=== PATIENT | male | born 1995 | race Caucasian/White ===

== ENCOUNTER 2020-06-10 08:17 | Emergency (ER) | payer OTHER, BC, SELFPAY ==
[2020-06-10 08:21] VITALS: BP 174/100; PULSE 90; RESP 18; TEMP 36.5; O2SAT 98; BMI 32.3
[2020-06-10 08:30] VITALS: PULSE 79
--- NOTE | 2020-06-10 08:30 | XRR_ITS ---
PROCEDURE INFORMATION: Exam: XR Right Finger(s) Exam date and time: 06/10/2020 8:32 AM Age: 25 years old Clinical indication: Injury or trauma; Other: Not specified; Blunt trauma (contusions or hematomas); Right; Middle finger; Additional info: Right middle finger injury TECHNIQUE: Imaging protocol: XR Right fingers. Views: Minimum 2 views. COMPARISON: No relevant prior studies available. FINDINGS: Bones/joints: Normal. Soft tissues: There is soft tissue deformity of the middle finger consistent with soft tissue laceration. The bandage surrounds the finger. Definite foreign bodies are not seen in the soft tissues. XR/XR finger RT min 2V 82201 IMPRESSION: Soft tissue injury of the middle finger. No bony abnormalities are seen.
[2020-06-10] MEDS: tetanus-dipt-pertussis 0.5 mL SDV IM (08:45)
[2020-06-10] MEDS: lidocaine 1% INJ 20 mL INJECTION (08:49)
--- NOTE | 2020-06-10 09:23 | ED_ITS ---
HPI - Extremity Problem General: Chief complaint: Extremity Injury, Upper Stated complaint: Finger injury on right hand History of Present Illness: HPI Narrative: Patient is a 25-year-old male who presents to the emergency room due to crush injury to right middle finger. Patient states that he was utilizing a metal bending machine when his right middle finger went into the machine. Patient presents now with glove on hand with open laceration noted through glove. Patient still has sensation to distal tip. Patient is able to bend his finger at the MCP joint. Patient tetanus is not up-to-date. Review of Systems General: Reports: 10 or more systems reviewed and unremarkable except in HPI and below Musc: Reports: extremity pain (3rd finger off right hand) and extremity swelling (3rd finger of right hand) Skin/Breast: Reports: other (laceration to 3rd finger of right hand.) Physical Exam Const: COMMON NORMALS: no acute distress, average body habitus, patient oriented x3, no limitations, healthy appearing, alert and well nourished GENERAL APPEARANCE: cooperative, comfortable, well kempt and well developed ORIENTATION/CONSCIOUSNESS: Yes awake, Yes oriented to person, Yes oriented to place and Yes oriented to time HENMT: COMMON NORMALS: normocephalic, atraumatic, hearing grossly normal bilaterally, external ears normal and Normal external nose present HEAD & SCALP: normal to inspection, normocephalic and atraumatic FACE & SINUS: normal facial exam NOSE: Normal external nose present GENERAL EAR: hearing grossly impaired EXTERNAL EAR: Yes external ears normal MOUTH: Normal oral and palatal mucosa present Eye: COMMON NORMALS: Equal, round and reactive pupils present and EOMs intact bilaterally GENERAL EYE: appearance normal, both eyes and all related structures PUPIL: Yes Equal, round and reactive pupils present Neck/C-Spine: COMMON NORMALS: full ROM and supple GENERAL: Yes normal visual inspection Chest: COMMONS NORMALS: normal inspection of the chest Resp: COMMON NORMALS: normal respiratory effort and No use of accessory muscles EFFORT & INSPECTION: Yes able to speak in complete sentences Cardio: COMMON NORMALS: regular rate, regular rhythm and Peripheral pulses 2+ throughout RATE: regular rate RHYTHM: regular rhythm PERIPHERAL PULSES: Peripheral pulses 2+ throughout GI: COMMON NORMALS: Normal to inspection, nondistended, normoactive bowel sounds present INSPECTION: Yes normal to inspection Back/Pelvis: THORACIC SPINE/UPPER BACK: Yes normal to inspection and Yes thoracic ROM normal Extremity: RIGHT UPPER EXTREMITY: Yes hand & digits (patient has partial avulsion of distal 3rd finger soft tissue with swelling) Right hand and digits: Yes inspection (tendons appear to be intact.), Yes ROM exam (ROM intact at MCP and DIP joint. Limited due to swelling at PIP.) and Yes neurovascular exam (capillary refill is less than 3 seconds and sensation is intact distal tip) Neuro: COMMON NORMALS: patient oriented x3 SENSORIUM/ORIENTATION: Yes alert, Yes oriented to person, Yes oriented to place and Yes oriented to time CRANIAL NERVES: Yes CN normal except as noted Psych: COMMON NORMALS: mental status grossly normal, cooperative and normal affect APPEARANCE: Yes grossly normal and Yes well kempt ATTITUDE: Yes calm Skin: TRAUMA: laceration (distal 3rd finger no nailbed involvement.) irregular, involves subcutaneous tissue, motor nerve function intact and sensation intact; no pulsatile bleeding Procedures Laceration Laceration 1: Site: upper extremity Side (If applicable): right Size (cm): 6 Description: irregular (t shaped on the lateral aspect of 3rd finger ) and clean Depth: simple, single layer (the extensor tendon is visible on inspection and is visibly intact. ROM intact at PIP, DIP, and MCP joint on inspection.) Local Anesthetic: lidocaine 1% and bupivacaine 0.5% Amount of anesthesia used (mL): 4 Pre-repair: wound explored, irrigated extensively (1000mL NS and soap.), deep structures intact, extensive debridement and wound margins revised Skin layer closed with: nylon Size (cm): 4-0 Number of sutures: 7 Technique: simple, interrupted Nail Trephination Time out: Yes (verbal consent obtained ) Location (finger): right and middle Sterile prep: other (alcohol) Method of drainage: other (Cautery pen) Procedure successful: Yes Patient tolerated procedure: well and no complications Nerve Block Nerve Block 1: Time out performed: Yes (verbal consent obtained from patient.) Local Anesthetic: lidocaine 1% and bupivacaine 0.5% Amount of anesthesia used (mL): 4 Side: right Nerve Blocks: digital (Right hand third finger) and other Procedure Successful: Yes Patient Tolerated Procedure: well and no complications Complications: none Course Vital Signs: Vital signs: Vital Signs Temperature 97.7 F 06/10/20 08:21 Pulse Rate 95 06/10/20 10:58 Respiratory Rate 18 06/10/20 08:21 Blood Pressure 161/105 06/10/20 10:58 Pulse Oximetry 99 06/10/20 10:58 MDM - Extremity (Nontraumatic) MDM Narrative: Medical decision making narrative: Patient is overall well- appearing nontoxic. Patient is concerning for partial avulsion of soft tissue of middle finger on right hand. There is crush injury to the nailbed. Patient differential includes open fracture, tendon involvement, laceration, contusion, among other broad differentials. After cleansing site I am able to visualize the extensor tendon which is intact. Inspected in bloodless field there is no evidence of foreign body. Remodeling performed due to superficial epidural tissue sloughed. Finger x-rays are negative for any displacement or fracture. I performed a digital block. Sutures performed. Patient tolerated procedure well. Wound approximated well. Patient given tetanus and IV antibiotics. Patient informed of all differentials, procedures and plan of care. Patient and coworker expressed understanding. Patient tetanus was updated and patient was placed on prophylactic antibiotics due extensiveness of finger injury. Differential Diagnosis: Extremity Problem Differential Diagnosis: Unlikely herpes zoster, gout, cellulitis, superficial thrombophlebitis, deep venous thrombosis of upper extremity, lower extremity edema and deep vein thrombosis of lower extremity Medical Records: Attestation: I reviewed the patient's medical records. Imaging Data^: Xray Ortho: My impression: No acute fracture or displacement. Discharge Plan Discharge Patient Disposition: Home Clinical Impression: Finger laceration Qualifiers: Encounter type: initial encounter Finger: middle finger Damage to nail status: with damage Foreign body presence: without foreign body Laterality: right Qualified Code(s): S61.312A - Laceration without foreign body of right middle finger with damage to nail, initial encounter Crushing injury of distal finger Qualifiers: Encounter type: initial encounter Qualified Code(s): S67.10XA - Crushing injury of unspecified finger(s), initial encounter Condition: Stable Prescriptions: New cephalexin 500 mg capsule 500 mg PO TID 7 Days Qty: 21 RF: 0 hydrocodone-acetaminophen 5-300 mg tablet 1 tab PO Q6H PRN (Reason: pain) Qty: 14 RF: 0 Discharge Orders: Discharge Order (Routine); Ordered 06/10/20 Ordered By: Selene Pandya Referrals: Lawson James DO [Primary Care Provider] - Discharge Diet: Regular Discharge Activity: Limit activity as instructed and Return to work/school after cleared by PCP/Specialist Activity Restrictions/Additional Instructions: Follow-up with your primary care provider in the next days take pain medications as prescribed do not drive, operate any machinery or utilize alcohol while taking this medication. Ice your extremity 20 minutes on 20 minutes off 4- 6 times a day.Rest, ice, compress, and elevate your extremity.Return to the emergency room if you experience decreased sensation, change in color, increasing pain, increasing swelling. Follow-up to have your sutures removed in 14 days. Stand Alone Forms: Work/School Release Discharge Date/Time: 06/10/20 10:58 Coding Level of Care Code ED Value Analysis Coordinator for Johng Fwd Exam Comprehensive
[2020-06-10] MEDS: ceFAZolin 1,000 mg SDV 1000 MG IVP (09:48)
--- NOTE | 2020-06-10 10:47 | PC.NURSE ---
Attempted to call report. Primary nurse in patient room therefore unable to take report. Primary nurse will call ED for report when available.
[2020-06-10] MEDS: neomycin-poly-bacitracin oint 0.9 gm Pkt 1 APPLIC TOPICAL (10:51)
--- NOTE | 2020-06-10 10:57 | PC.NURSE ---
Addendum entered by JUID Whittaker 06/10/20 11:01: 2 ginette used rather than kerlix Original Note: 3rd digit Right hand dressed with telfa and kerlix after neomycin application. Pt discharged home, pt alert and oriented at time of discharge.
[2020-06-10 10:58] VITALS: BP 161/105; PULSE 95; O2SAT 99
== END 2020-06-10 10:58 | disposition home or self-care (01) ==
PROVIDERS: Emergency Provider Nurse Practitioner Family
DX: S61.312A Laceration without foreign body of right middle finger with damage to nail, initial encounter (principal); S67.10XA Crushing injury of unspecified finger(s), initial encounter; W31.89XA Contact with other specified machinery, initial encounter; Z23 Encounter for immunization
CPT/HCPCS: 11740; 12002; 12345; 73140; 90471; 90715; 96374; 96375; 99282; 99283; A6446; J0690; J3490